=== PATIENT | female | born 1990 | race African-American/Black ===

== ENCOUNTER 2018-05-01 15:54 | Emergency (ER) | payer SELFPAY ==
[~2018-05-01] VITALS: Ht 175.3 cm; Wt 77.3 kg
[2018-05-01 17:33] LABS: HCG,QUANTITATIVE < 1 mIU/mL (0-6)
[2018-05-01 18:11] VITALS: BP 137/77
== END 2018-05-01 18:27 | disposition home or self-care (01) ==
LOC: EMS 15:54
DX: S60.512A Abrasion of left hand, initial encounter (principal); R45.4 Irritability and anger; F10.10 Alcohol abuse, uncomplicated; F17.210 Nicotine dependence, cigarettes, uncomplicated; Y90.5 Blood alcohol level of 100-119 mg/100 ml; W22.8XXA Striking against or struck by other objects, initial encounter; Y93.89 Activity, other specified; Y92.89 Other specified places as the place of occurrence of the external cause; Y99.8 Other external cause status
CPT/HCPCS: 36415; 73130; 84702; 99284; G0480